=== PATIENT | male | born 1985 | race Caucasian/White ===

== ENCOUNTER 2019-02-25 18:52 | Emergency (ER) | payer OTHER, SELFPAY ==
[2019-02-25 18:55] VITALS: BP 140/98; PULSE 88; RESP 18; TEMP 37.1; O2SAT 100; BMI 25.1
--- NOTE | 2019-02-25 19:03 | EKG12_ITS ---
Test Reason : CP Blood Pressure : / mmHG Vent. Rate : 079 BPM Atrial Rate : 079 BPM P-R Int : 116 ms QRS Dur : 086 ms QT Int : 372 ms P-R-T Axes : 048 071 065 degrees QTc Int : 426 ms Normal sinus rhythm with sinus arrhythmia Normal ECG Confirmed by DOMINIQUE KRISHNA ([id number]), medical editor ALISA MORALES ([id number]) on 02/27/2019 10:47:05 AM Referred By: RIC Confirmed By:DOMINIQUE KRISHNA
[2019-02-25 19:18] LABS: Absolute Lymphocyte Count 1.98 X10^3/uL (0.83-4.51); Absolute Neutrophil Count 4.9 X10^3/uL (2.0-7.7); Basophil# 0.04 X10^3/uL; Basophil% 0.5 % (0-1); Eosinophil# 0.07 X10^3/uL; Eosinophils% 0.9 % (0-5); Hematocrit 43.6 % (40-54); Hemoglobin 14.3 g/dL (13.0-16.5); Lymphocyte # 1.98 X10^3/ul (4.0); Lymphocyte % 26.7 % (19-41); Mean Corp Hgb Conc 32.8 g/dL (32-36); Mean Corpuscular Hgb 29.3 pg (27.0-32.0); Mean Corpuscular Volume 89.3 fL (80-94); Mean Platelet Vol. 9.1 fl (6.2-12.0); Monocyte# 0.46 X10^3/uL; Monocyte% 6.2 % (0-10); NRBC Flagged by Analyzer 0 % (0-5); Neutrophil # 4.85 X10^3/uL (2.7-7.7); Neutrophil % 65.6 % (47-70); Platelet Count 310 K/mm3 (150-450); RBC Distribution Width CV 12.2 % (11.6-14.6); RBC Distribution Width SD 39.9 fl (35.1-43.9); Red Blood Count 4.88 M/mm3 (4.6-6.2); White Blood Count 7.4 K/mm3 (4.4-11.0)
--- NOTE | 2019-02-25 19:18 | RAD_ITS ---
STUDY: X-RAY CHEST REASON FOR EXAM: Male, 33 years old. Chest pain. TECHNIQUE: Frontal chest. COMPARISON: None. FINDINGS: No apparent pneumothorax, pneumonia, pleural effusion, or edema. Cardiac silhouette, meghan and mediastinal contours are within normal limits. No acute osseous abnormality. No evidence of free air under the diaphragm. RAD/Chest 1 View (Portable) IMPRESSION: Negative chest radiograph. Electronically Signed: Isiah Ceballos, at 19:43 EST Tel , Service support ,
[2019-02-25 19:32] LABS: BUN 15 mg/dL (7-18); Creatinine, Serum 0.98 mg/dL (0.70-1.30); EST Glomerular Filtration Rate 92 mL/min (>60); Estimated Creatinine Clearance 112.05 ml/min; Glucose 106 mg/dL (74-106)
[2019-02-25 19:33] LABS: Anion Gap 4 (5-15); BUN/Creat Ratio 15.2 RATIO (10-20); Calcium,Total 9.1 mg/dL (8.5-10.1); Chloride 108 mmol/L (98-107); Est Glom Filt Rate - Afr Amer 111 mL/min (>60); Potassium 3.6 mmol/L (3.5-5.1); Sodium Level 140 mmol/L (136-145)
[2019-02-25 20:24] VITALS: BP 133/88; PULSE 64; RESP 12; O2SAT 100
[2019-02-25] MEDS: Aspirin 81 MG TAB.CHEW 324 MG PO (20:26)
--- NOTE | 2019-02-25 20:39 | EKG12_ITS ---
Test Reason : CP REPEAT Blood Pressure : / mmHG Vent. Rate : 063 BPM Atrial Rate : 063 BPM P-R Int : 120 ms QRS Dur : 084 ms QT Int : 392 ms P-R-T Axes : 042 055 059 degrees QTc Int : 401 ms Normal sinus rhythm Normal ECG Confirmed by DOMINIQUE KRISHNA ([id number]), video news editor ALISA MORALES ([id number]) on 02/27/2019 10:47:22 AM Referred By: MISAEL Confirmed By:DOMINIQUE KRISHNA
[2019-02-25 21:00] VITALS: BP 124/85; PULSE 64; RESP 14; O2SAT 99
--- NOTE | 2019-02-25 22:32 | ED.VISSUMM ---
- ER Visit Summary Date of Service: 02/25/19 Chief Complaint: Chest pain History of Present Illness: The patient is a [address] Salazar. Reports referred cart receiving while making dinner he had the onset of a left-sided chest pain. Is described as a continuous dull pain that is 6 out of 10 at worst and 2 out of 10 currently. Initially it was worsened by external rotation of his left shoulder. However, he reports that no longer seems to make this worse. Is relieved by nothing. He denies any associated nausea, vomiting, shortness of breath, or diaphoresis. No personal or family history of DVT. No recent travel. No ankle swelling or calf pain. He has no risk factors for coronary artery disease. Physical Examination: Vitals: Stable. Afebrile. General: Well-nourished and well-developed. Head: Normocephalic atraumatic. Neck: Supple, no lymphadenopathy. No JVD. Nontender. Cardiovascular: Regular rate and rhythm. No murmurs. Respiratory: No respiratory distress. Clear to auscultation bilaterally. Abdominal: Soft, nontender, nondistended, normal bowel sounds. No guarding, rebound, or peritoneal signs. Back: Nontender. Extremities: Nontender, no edema. Skin: Normal color, no rash. Neurologic: Alert and oriented ?3. Cranial nerves II through XII are intact. Normal strength and sensation. Psych: Normal affect. Test Results: EKG is sinus at [address] changes. Repeat EKG is unchanged. Troponin is negative. Repeat troponin is negative. Chem-7 shows a chloride 108. CBC is normal. Chest x-ray is normal. Emergency Department Course and Treatment: Patient is resting comfortably without complaint. Treatment Plan: Patient's NIKOS score is 0 and he is PERC negative. I feel he is a suitable candidate for further outpatient evaluation. He will be discharged instructions follow-up Dr. Salazar soon as possible. Return to the emergency department for any worsening symptoms. Disposition: To home in improved and stable condition. Impression: 1. Chest pain, atypical. 2. NIKOS score of 0. This note was generated with [employer] software. It may contain incorrect words, spelling, and punctuation that were not noted in review of the chart prior to signing ED Disposition - Plan for ED Patient: Disposition: Home or Assisted Living Instructions: CHEST PAIN, Uncertain Cause Referrals: Cora Salazar MD [Primary Care Provider] - 2 Days
[2019-02-25 22:45] VITALS: BP 130/79; PULSE 62; RESP 16; O2SAT 99
== END 2019-02-25 22:49 | disposition home or self-care (01) ==
PROVIDERS: Emergency Provider Emergency Medicine; Family Provider Family Medicine; PCP Family Medicine
DX: R07.89 Other chest pain (principal)
CPT/HCPCS: 71045; 80048; 84484; 85025; 93005; 99285; A4216

== ENCOUNTER 2019-09-02 11:18 | Emergency (ER) | payer OTHER, SELFPAY ==
[2019-09-02 11:19] VITALS: BP 136/85; PULSE 76; RESP 16; TEMP 36.9; BMI 25.1
[2019-09-02 12:27] VITALS: RESP 16; O2SAT 100
[2019-09-02] MEDS: Diphth,Pertuss(Acell),Tet Vac 0.5 ML Vial IM (12:57)
--- NOTE | 2019-09-02 13:28 | ED.DCSUM_ITS ---
- ER Visit Summary Date of Service: 09/02/19 Chief Complaint: Facial laceration History of Present Illness: The patient is a 34 M who presents with facial laceration that occurred today. Patient states he was cutting wood on a table saw when the wood kicked back and hit him in the face. Patient denies any loss of consciousness. Patient denies any pain. Patient states the bleeding stopped after a few minutes. Patient denies any visual changes. Patient denies any headaches. Patient denies any paresthesias or weakness. Patient is unsure of his last tetanus. Physical Examination: Vital signs are stable. Patient is afebrile. Patient is in no acute distress. Skin is warm and dry. There is a 5 cm superficial abrasion over the right cheek. There is minimal gapping of the wound margins. There is no bleeding. There is a 0.5 cm laceration through the epidermis and dermis of the right upper eyelid. There is moderate gapping of the wound margins. There are no foreign bodies. There is no laceration through the eyelid. Pupils are equal, round, and reactive to light bilaterally. Extraocular muscles are intact. Conjunctiva is clear. Cranial nerves II through XII are intact. There are no focal motor or sensory deficits noted. Oral mucosa is pink and moist. Neck is supple. Trachea is midline. There is no JVD. Heart was regular rate and rhythm. Lungs are clear and equal bilaterally. Emergency Department Course and Treatment: Patient was given a tetanus booster. The right upper eyelid wound was cleaned and irrigated with copious amounts of normal saline. The wound was anesthetized with 1% plain lidocaine locally. The wound was closed with 3 simple interrupted #5-0 nylon sutures under sterile technique. Patient tolerated the procedure well. Patient was instructed to follow-up with his primary care physician in 5 days. Patient was also given referral to ophthalmology for follow-up suture removal. Patient was instructed to keep the wound clean and dry. Patient understood and was agreeable with the plan. All questions were answered. Disposition: Discharge home Impression: 1. Right upper eyelid laceration 2. Facial abrasion This note was generated with [employer] software. It may contain incorrect words, spelling, and punctuation that were not noted in review of the chart prior to signing ED Disposition - Plan for ED Patient: Disposition: Home or Assisted Living Diagnosis: Right eyelid laceration, Facial abrasion Instructions: ED Laceration Facial Sutr Tape Referrals: Cora Salazar MD [Primary Care Provider] - 5 Days for suture removal Miladis Melvin MD [STAFF PHYSICIAN] - 5 Days for suture removal
== END 2019-09-02 13:49 | disposition home or self-care (01) ==
PROVIDERS: Emergency Provider Emergency Medicine; PCP Family Medicine
DX: S01.111A Laceration without foreign body of right eyelid and periocular area, initial encounter (principal); S00.81XA Abrasion of other part of head, initial encounter; W22.8XXA Striking against or struck by other objects, initial encounter; Z23 Encounter for immunization
CPT/HCPCS: 12011; 90471; 90715; 94760; 99284

== ENCOUNTER 2022-04-25 21:07 | Emergency (ER) | payer OTHER, SELFPAY ==
[2022-04-25 21:08] VITALS: BP 119/75; PULSE 83; RESP 15; TEMP 37; O2SAT 98; BMI 26.3
--- NOTE | 2022-04-25 21:23 | ED.VIS.LOWEX ---
HPI History of Present Illness Chief Complaint: Lower Extremity Injury Narrative Narrative: Patient was running and basketball, he heard a pop in his left Achilles and came to the ED. No other injuries. PFSH PFSH Home Medications NK 02/25/19 [History Last Taken Unknown] Allergy/AdvReac Type Severity Reaction Status Date / Time No Known Allergies Allergy Verified 04/25/22 21:12 Social History Smoking Status: Never smoker ROS ROS ED ROS Narrative Past medical history: none Medications: Reviewed Social history: Noncontributory Review of systems: Musculoskeletal: Left ankle pain in the Achilles region Skin: No abrasions or lacerations Neurological: No weakness or paresthesias Hematologic: No easy bleeding or easy bruising EXAM Physical Exam Narrative Exam Narrative: Physical exam General: Patient does not appear in significant distress . Cardiovascular: Normal distal pulses Back: Nontender, Normal Inspection. Extremities: Left ankle shows tenderness over the Achilles region there is an obvious deformity positive Johns sign. Skin: No abrasions, no lacerations Neurological: Normal strength and sensation Const Vital Signs: 04/25/22 21:08 Temperature 98.6 F Temperature Source Temporal Pulse Rate 83 Respiratory Rate 15 Blood Pressure 119/75 Blood Pressure Mean 89 Pulse Ox 98 Oxygen Delivery Method Room Air MDM MDM MDM Narrative Medical decision making narrative: I discussed the patient with podiatry, Dr. Draper who will see him tomorrow. I thought about analgesia however patient has minimal pain and does not require any pain medications. Patient is splinted see procedure note. Otherwise will be discharged in stable condition. Procedure note: Splinting, indication is Achilles tendon rupture. Verbal consent Ortho-Glass was used, a posterior short leg splint was applied ankle was left in extension. Patient tolerated procedure well Radiography Diagnostic Testing: Left ankle x-ray read by me as no bony injuries Discharge Plan Triage Chief Complaint: Lower Extremity Injury ED Provider: Ezekiel Alejo Dx/Rx/DC Orders Clinical Impression: Achilles tendon rupture Instructions: Achilles Tendon Rupture Prescriptions: No Action NK Primary Care Provider: Cora Salazar Referrals: Cora Salazar MD [Primary Care Provider] - Guilherme Draper DPM [Med Staff - Active Staff] - 1 Day (Call in the morning you should have an appointment tomorrow.) Torey Barraza MD [Med Staff - Active Staff] - 3-5 Days Disposition Disposition: Home, Self Care
--- NOTE | 2022-04-25 21:25 | RAD_ITS ---
STUDY: X-RAY - LEFT ANKLE REASON FOR EXAM: Male, 37 years old. FELT POP IN ACHILLES DURING BASKETBALL trauma TECHNIQUE: 3 view(s) of the ankle. COMPARISON: None. FINDINGS: Normal visualized distal tibia and fibula. There is spurring of the medial malleolus and medial talus. Normal tibiotalar articulation and ankle mortise. Normal visualized talus and calcaneus. The visualized subtalar, talonavicular, calcaneocuboid and tarsal articulations are normal. There is no demonstrated fracture. There is posterior soft tissue swelling. RAD/Ankle min 3 Views IMPRESSION: Posterior soft tissue swelling. Electronically Signed: Pino Eaton MD at 22:00 EST ,
== END 2022-04-25 21:59 | disposition home or self-care (01) ==
PROVIDERS: Emergency Provider Emergency Medicine; PCP Family Medicine; Visit Provider Emergency Medicine
DX: S86.012A Strain of left Achilles tendon, initial encounter (principal); Y93.67 Activity, basketball
CPT/HCPCS: 73610; 99283

== ENCOUNTER → 2022-05-02 | Outpatient (CLI) | payer OTHER, SELFPAY ==
[2022-05-02 17:41] LABS: Absolute Lymphocyte Count 1.34 X10^3/uL (0.83-4.51); Absolute Neutrophil Count 4.4 X10^3/uL (2.0-7.7); Basophil# 0.02 X10^3/uL; Basophil% 0.3 % (0-1); Eosinophil# 0.04 X10^3/uL; Eosinophils% 0.6 % (0-5); Hemoglobin 14.3 g/dL (13.0-16.5); Lymphocyte # 1.34 X10^3/ul (0.83-4.51); Lymphocyte % 21.6 % (19-41); Mean Corp Hgb Conc 31.8 g/dL (32-36); Mean Corpuscular Hgb 29.1 pg (27.0-32.0); Mean Corpuscular Volume 91.5 fL (80-94); Mean Platelet Vol. 9.1 fl (6.2-12.0); Monocyte# 0.38 X10^3/uL; Monocyte% 6.1 % (0-10); NRBC Flagged by Analyzer 0 % (0-5); Neutrophil # 4.41 X10^3/uL (2.7-7.7); Neutrophil % 71.4 % (47-70); Platelet Count 328 K/mm3 (150-450); RBC Distribution Width CV 12.4 % (11.6-14.6); RBC Distribution Width SD 41.7 fl (35.1-43.9); Red Blood Count 4.92 M/mm3 (4.6-6.2); White Blood Count 6.2 K/mm3 (4.4-11.0)
[2022-05-02 18:54] LABS: ALB/GLOB Ratio 1.1 RATIO (0.9-2.4); AST(SGOT) 15 U/L (15-37); Alanine Aminotransfer ALT/SGPT 23 U/L (16-61); Alkaline Phosphatase 84 U/L (45-117); Anion Gap 5 (5-15); BUN 18 mg/dL (7-18); BUN/Creat Ratio 17.5 RATIO (10-20); Calcium,Total 9.2 mg/dL (8.5-10.1); Chloride 105 mmol/L (98-107); Creatinine, Serum 1.03 mg/dL (0.70-1.30); EST Glomerular Filtration Rate 85 mL/min (>60); Est Glom Filt Rate - Afr Amer 103 mL/min (>60); Globulin 3.8 g/dL (2.2-4.2); Glucose 96 mg/dL (74-106); Potassium 4.2 mmol/L (3.5-5.1); Protein, Total 7.8 g/dL (6.4-8.2); Sodium Level 138 mmol/L (136-145)
== END | disposition home or self-care (01) ==
LOC: MFPLAB 16:43
PROVIDERS: PCP Family Medicine; Visit Provider Family Medicine
DX: Z01.818 Encounter for other preprocedural examination (principal)
CPT/HCPCS: 36415; 80053; 85025

== ENCOUNTER 2022-05-08 11:39 | Day surgery (SDC) | payer OTHER, SELFPAY ==
[2022-05-08 12:04] VITALS: BP 148/78; PULSE 92; RESP 16; TEMP 36.8; O2SAT 100; BMI 26.4
[2022-05-08] MEDS: Lactated Ringers 1,000 ML 15 ML IV (12:29)
[2022-05-08] MEDS: Cefazolin 2 GM in 0.9% Normal Saline 100 ML IV (13:40)
--- NOTE | 2022-05-08 15:08 | DCINST_ITS ---
Discharge Instructions Diet Discharge Diet: Light diet - advance as tolerated Activity Discharge Activity: May Not Drive Weight Bearing Status: No weight bearing (No weightbearing left foot.) Keep extremity elevated above heart level: Left Leg (Keep left foot elevated for at least 50 minutes of every hour.) Dressing / Incision Call your doctor if your incision/area has: Continuous Slow Oozing, Sudden Increased Bleeding and Foul Smelling Discharge Call your doctor if you observe: Fever of 101 or Higher, Shortness of breath, Chest pain, Increased palpitations (irregular heartbeat), Calf discomfort and Uncontrolled pain Change Dressing in: do not change dressing Remove Dressing in: do not remove dressing Cleanse incision/area with: Keep Dressing Clean & Dry Follow Up Care Please Follow Up With: Guilherme Draper DPM When: 1 week in office, sooner if needed. Call Dr. Draper if needed: [phone] - cell Additional instructions: On Sunday05/09/2022: Start 325mg Aspirin tablet by mouth in morning once a day to help prevent a blood clot. Also if you do not need prescription pain medication take: Over the counter Tylenol (acetaminophen) 500mg tablet - 1-2 tablets (which is 500-1,000mg) by mouth every 8 hours as needed for pain. Do not take prescription pain medication at same time as over the counter Tylenol - wait 6 hours in between prescription pain medication and over the counter Tylenol medication. Test Results: Test results from this visit will be discussed in further detail at your follow- up appointment, if applicable. Discharge Plan Admission Attending Provider: Guilherme Draper Primary Care Provider: Cora Salazar Discharge Orders/Prescriptions Prescriptions: New hydrocodone-acetaminophen 5-325 mg tablet 1 - 2 tab PO Q6H PRN (Reason: pain) 4 Days Qty: 20 0RF Referrals / Follow Up: Cora Salazar MD [Primary Care Provider] - Disposition Disposition (needs filled in before D/C Order can be placed): Home, Self Care
--- NOTE | 2022-05-08 15:12 | OP.PCM_ITS ---
Report of Operation Date of Procedure: 05/08/22 Pre-Operative Diagnosis: Left achilles tendon rupture Post-Operative Diagnosis: Same Surgery/Procedure Performed:: Open repair of achilles tendon rupture, left Surgeon: Guilherme Draper Type of Anesthesia: General and Local Specimen's removed: None Estimated Blood Loss (mL): 1mL Description of Procedure: Indications: This is a 37 year-old gentleman who has sustained a full thickness left Achilles tendon rupture playing basketball. He has pain, swelling and bruising as well as significant weakness to the achilles tendon. There is a positive caceres test to the left achilles tendon. We discussed the options - nonsurgical vs surgical. This was discussed with him in detail. He would like to proceed with surgical intervention - we discussed open repair of achilles tendon. He did get a second opinion prior to surgery by James Plummer. The procedure was reviewed with him, as well as the goals, estimated recovery and the benefits vs risks with him. He was advised the risks include but are not limited to pain, scar tissue, weakness, recurrence, need for further surgery, deformity, nonhealing, infection, blood clot, numbness, nerve injury and damage, bleeding, failure, loss of limb, loss of life. Can take 12-14 months for maximal healing - possibly longer. All the consent forms were reviewed with him and he freely signed them. No guarantees were given nor implied. No warrantees were given. Operative Procedure: The patient was brought back into the operating room.? The patient received general anesthesia per the anesthesiologist.?He was carefully placed on the operating room table in the prone position secured with a safety belt in place and body well padded. A well-padded pneumatic tourniquet was applied around the left thigh.? A time-out was performed and the patient was properly identified and surgical plan was confirmed.? The patient did receive prophylactic antibiotics for this procedure, which was Ancef 2 grams intravenous.? The left lower extremity was scrubbed, prepped and draped in the usual aseptic fashion. Attention was directed to the left foot and ankle. Again there was noted to be a positive Caceres test, with dell to the achilles tendon with swelling and bruising consistent with full thickness Achilles tendon rupture. The left foot/ankle/leg were elevated for 3 minutes and the right thigh pneumatic tourniquet was inflated to 300mmHg. A total of 30mL of 0.25% Bupivacaine plain was given as a nerve block around the achilles tendon. A linea longitudinal skin incision was made overlying the achilles tendon. Careful dissection as completed down to the paraton and it was incised and reflected exposing the achilles tendon. There was complete transverse rupture at the watershed area of the achilles tendon. The site was irrigated with normal saline solution. The tendon ends were brought together and were repair together using a Oscar suturing kai hinque using 2 Fiberwire and 0 Prolene. The ends were also reinforced using 2-0 Vicryl. The tendon was repaired to proper tension. There was now a negative caceres test and foot was in normal amount of plantarflexion with patient in prone position on the operating room table. There was normal range of motion to the foot and ankle with a very good repair in place. The site was flushed with copious amounts of normal saline solution. The paraton was repair using 3-0 Vicryl. The skin was repaired using 4-0 Monocryl. Incision edges were painted with Cavalon and steristrips applied. A dressing of betadine adaptic, 4x4 gauze, kerlix, and beth were applied. A well padded below knee posterior splint was applied secured with beth bandages and heel and incision offloaded. The patient tolerated the procedure and anesthesia well with no complications. Post op orders placed. Post op instructions reviewed and dispensed verbal and written. No weightbearing left foot, keep left foot elevated at least 50 min of every hour, keep dressing and splint clean, dry and intact. Rx Vicodin for post op pain management. Start 325mg Aspirin PO once daily tomorrow. Follow up with me in 1 week, sooner if needed. Grafts/Implants Used: 2 fiberwire and 0 prolene was used to repair left achilles tendon Complications None
[2022-05-08 15:15] VITALS: BP 131/91; BP 148/78; PULSE 74; RESP 18; O2SAT 100
[2022-05-08 15:30] VITALS: BP 142/94; BP 148/78; PULSE 71; RESP 18; TEMP 36.1; O2SAT 94
[2022-05-08 15:45] VITALS: BP 140/98; BP 148/78; PULSE 71; RESP 18; O2SAT 100
[2022-05-08 15:56] VITALS: BP 143/92; BP 148/78; PULSE 71; RESP 18; TEMP 36.2; O2SAT 99
[2022-05-08 16:27] VITALS: BP 148/78
== END 2022-05-08 16:47 | disposition home or self-care (01) ==
LOC: SDC 11:40 → AC 11:41
PROVIDERS: PCP Family Medicine; Referring Provider Podiatrist; Visit Provider Podiatrist
PROC: (CPT 27650; principal; 2022-05-08 13:15)
DX: S86.012A Strain of left Achilles tendon, initial encounter (principal); X58.XXXA Exposure to other specified factors, initial encounter; Y93.67 Activity, basketball
CPT/HCPCS: 27650; 01472; J7120; J2405

== ENCOUNTER → 2022-06-28 | Outpatient (CLI) | payer OTHER, SELFPAY ==
--- NOTE | 2022-06-28 07:45 | MRI_ITS ---
STUDY: MRI LEFT ANKLE WITHOUT CONTRAST REASON FOR EXAM: Male, 37 years old. Recent Achilles tendon repair surgery with continued medial pain. TECHNIQUE: Standardized fat and water weighted pulse sequences were obtained in all 3 orthogonal planes. COMPARISON: Left ankle images dated April 25, 2022. FINDINGS: Diffuse superficial subcutaneous soft tissue edema (coronal series 11 images to-10). Minimal posterior tibialis tenosynovitis. Flexor digitorum longus and flexor hallucis longus tenosynovitis most marked on the plantar surface of the foot (axial series 3 images 6-15). Normal peroneus longus and brevis tendons. Normal tibialis anterior tendon. Normal extensor hallucis longus tendon. Normal extensor digitorum longus tendons. Thickening of the distal Achilles tendon with artifact compatible with distal Achilles tendon repair (sagittal series 8 and 9 images 11-16). Normal plantar fascia. Normal plantar calcaneal tubercles. Normal intrinsic muscles of the rearfoot. Normal distal tibiofibular syndesmotic ligamentous complex. Normal lateral ligamentous complex. Normal subtalar ligaments and sinus tarsi. Normal deltoid ligamentous complexes. Normal plantar calcaneonavicular (spring) ligament. Normal tibiotalar articulation. Normal talar dome. Normal subtalar articulations. Normal talonavicular articulation. Normal calcaneocuboid articulation. Normal navicular-cuneiform articulations. MRI/Lower Ext Joint Only (Routine) IMPRESSION: Minimal posterior tibialis tenosynovitis. Flexor digitorum longus and flexor hallucis longus tenosynovitis. Postsurgical changes with thickening of the distal Achilles tendon with artifact. Diffuse superficial subcutaneous soft tissue edema. Electronically Signed: Leo Sneed, at 14:51 EDT ,
== END | disposition home or self-care (01) ==
PROVIDERS: PCP Family Medicine; Referring Provider Podiatrist; Visit Provider Podiatrist
DX: S86.112A Strain of other muscle(s) and tendon(s) of posterior muscle group at lower leg level, left leg, initial encounter (principal)
CPT/HCPCS: 73721

== ENCOUNTER 2022-08-21 15:30 | Outpatient (RCR) | payer OTHER, SELFPAY ==
--- NOTE | 2022-07-25 17:10 | HP.PTEVAL ---
Patient's Visit Information GREGORY SWAN is a 37 year old M referred to Physical Therapy by JEFF BurnsM with a diagnosis of L achilles repair 05/08/22. Date of Evaluation: 07/25/22 Physical Therapist: Gary Luu, PT, ATC - Visit Plan Frequency: 2-3x /Week Duration: 4-6 Weeks Plan: Wean out of boot as tolerated. L ankle PROM and mobs, stretching and strengthening, balance and proprio, gait training, bike, and HEP - Subjective DOS: 05/08/22. Pt reports he was playing basketball at that time and tore his Achilles tendon. Pt notes he has sprained his ankle a lot in the past and though that was all that happened. Pt notes he had to have the surgery to repair his tendon and now he feels much better. Pt reports his pain is minimal, but his L LE feels very weak. Pt reports he has not been performing a HEP as of this time. Pt notes he has attempted to ambulate without his cam boot, but he feels very unconfident and weak. Pt reports he is not on any restrictions other than to wean himself out of the boot. Pt reports numbness in L LE only surrounding the incision. 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 .5/10 pain at this time, 4/10 pain from prolonged standing. Pt denies sleep difficulty at this time secondary to pain. - Pain L achilles Pain Intensity (Out of 10): 1 Pain Intensity Range: 4 - Objective Neuro: B LE sensation is WNL to light touch. Girth: L foot 60 cm, R foot 57 cm. MMT: R ankle DF= 37, PF= 52#F; L ankle DF= 37, PF= 19 #F. ROM: R ankle DF= 5, PF= 60 degrees; L ankle DF= -5, PF= 45 degrees - Balance/Special Test Scores Lower Extremity Functional Score: 46 - Goals Goal 1:: Increase L ankle DF and PF strength x 15 #F to aid with stair negotiation Goal Time Frame: 4-6 Weeks Goal 2:: Increase L ankle DF ROM x 15 degrees to aid with decreasing pain Goal Time Frame: 4-6 Weeks Goal 3:: Decrease L ankle pain x 50% to aid with prolonged ambulation Goal Time Frame: 4-6 Weeks Goal 4:: I with hep Goal Time Frame: 4-6 Weeks - Rehabilitation Potential Physical Therapy Diagnosis: Pt has L ankle pain, weakness, and limited ROM secondary to L achilles repair Rehabilitation Potential: Good - Anticipated Interventions Patient/Client Instruction: Educate patient on: Condition, Plan of Care For the Purpose of:: To improve self management Therapeutic Exercise to Include: Strength training, Endurance training, Balance training, Flexibilty training, Gait and locomotor training, Active ROM, Dynamic Lumbar Stabilization For the Purpose of:: To decrease pain, To increase ROM, To improve muscle performance and motor function Cryotherapy (ice pack, ice massage): Yes For the Purpose of:: To decrease pain Thank you for the opportunity to evaluate your patient. For Medicare and Medicare HMO plans, please review the plan of care and approve it. It will need to be FAXED BACK to us at [phone] for Medicare purposes. For Medicare only, by signing this I certify the plan of care. Please let me know if there are questions or concerns regarding this plan of care. Physician Signature: Date:
--- NOTE | 2022-11-15 13:11 | HP.PT.NRP ---
Patient Information Patient Information: GREGORY SWAN was seen in my office for initial evaluation on 07/25/22. The following Plan of Care was established for this patient: POC Established Initial Frequency: 2-3x /Week Initial Duration: 4-6 Weeks Anticipated Interventions Patient/Client Instruction: Educate patient on: Condition and Plan of Care For the Purpose of:: To improve self management Therapeutic Exercise to Include: Strength training, Endurance training, Balance training, Flexibilty training, Gait and locomotor training, Active ROM and Dynamic Lumbar Stabilization For the Purpose of:: To decrease pain, To increase ROM and To improve muscle performance and motor function Cryotherapy (ice pack, ice massage): Yes For the Purpose of:: To decrease pain Last Seen Last Seen: This patient was last seen in our office . Pertinent comments regarding their Physical therapy will appear below: Pt was treated for 4PT visits for L heel pain through the date of 08/21/22. Pt has not returned through todays date and is discontinued at this time. At this point I will be discontinuing this patient from physical therapy. I would be happy to see this patient again in the future if found appropriate by the physician. Thank you! Gary Luu, PT, ATC Balance/Gait/Functional tests Balance/Special Test Scores Lower Extremity Functional Score: 46
== END 2022-08-21 19:00 | disposition home or self-care (01) ==
LOC: PT 15:30
PROVIDERS: PCP Family Medicine; Referring Provider Podiatrist; Visit Provider Podiatrist
DX: Z98.890 Other specified postprocedural states (principal)
CPT/HCPCS: 97110; 97140; 97161

== ENCOUNTER 2024-12-23 13:57 | Day surgery (SDC) | payer OTHER, SELFPAY ==
[2024-12-23 14:20] VITALS: BP 122/84; PULSE 79; RESP 16; TEMP 36.5; O2SAT 100; BMI 24.0
[2024-12-23] MEDS: Lactated Ringers 1,000 ML 15 ML IV (14:22)
--- NOTE | 2024-12-23 14:36 | PCM.PRE.AN2 ---
ASA Classification* ASA Classification ASA Classification: 1 Assessment & Plan Anesthesia* Anesthesia Assessment Anesthesia Assessment: Discussed sedation and/or anesthesia options, risks, benefits, and alternatives with patient/parents/legal guardian/POA. Questions invited. The patient/parents/legal guardian/POA seems to understand and agrees to proceed with anesthesia plan. Reviewed the physical assessment, medical history, allergy history and patient home medications list prior to surgery/procedure/anesthetic and documented any changes. Performed airway and anesthesia risk assessments. Anesthesia Type Anesthesia Type: MAC History Source History Obtained from:: Patient and Chart Anesthesia Focused Assessment* Temperature: 97.7 F Pulse Rate: 79 Blood Pressure: 122/84 Respiratory Rate: 16 Pulse Ox: 100 Oxygen Delivery Method: Room Air Airway Assessment Mouth opens: >3 cm Mallampati Score: I Teeth Condition: Intact Neck Range of motion (ROM): Full ROM Labs Anesthesia Preop lab: CBC WBC, (4.4-11.0) 6.2 K/mm3 05/02/22, 16:43 RBC, (4.6-6.2) 4.92 M/mm3 05/02/22, 16:43 Hgb, (13.0-16.5) 14.3 g/dL 05/02/22, 16:43 Hct, (40-54) 45.0 % 05/02/22, 16:43 Plt Count, (150-450) 328 K/mm3 05/02/22, 16:43 CHEMISTRY Potassium, (3.5-5.1) 4.2 mmol/L 05/02/22, 16:43 Sodium, (136-145) 138 mmol/L 05/02/22, 16:43 BUN, (7-18) 18 mg/dL 05/02/22, 16:43 Creatinine, (0.70-1.30) 1.03 mg/dL 05/02/22, 16:43 Glucose, (74-106) 96 mg/dL 05/02/22, 16:43 COAG Pre-Assessment Diagnosis/Proposed Procedure Planned Operative Procedure(s): COLONOSCOPY Anesthesia History 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 When Was Last Pacemaker Check QUESTION #4 FULL TEXT: You/Your Family Experience fever (hyperthermia) with Anesthesia Last Oral Intake Last Oral intake: Last Oral Intake NPO since 11:00 12/23/24 14:20 Meds taken in AM with sips of No 12/23/24 14:20 water? 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 Female Yes 12/18/24 14:46 HX of Motion Sickness No 12/18/24 14:46 HX of N/V After Surgery No 12/18/24 14:46 Non-Smoker Yes 12/18/24 14:46 Duration of Surgery greater No 12/18/24 14:46 than 60 minutes Number of Risk Factors 2 12/18/24 14:46 PONV Score Moderate Risk 12/18/24 14:46 Height & Weight Height & Weight: Anesthesia: Height & Weight Height 5 ft 11 in 12/23/24 14:20 Weight: 78 kg 12/23/24 14:20 Body Mass Index (BMI) 24.0 12/23/24 14:20 Respiratory Assessment Respiratory Assessment - electronic security technician: Respiratory Tract Infection Hx - electronic security technician Hx Respiratory Tract Infection No 12/18/24 14:46 STOP Sleep Apnea STOP Sleep Apnea - electronic security technician: STOP Sleep Apnea - electronic security technician Hx Hypertension No 12/18/24 14:46 Hx Sleep Apnea No 12/18/24 14:46 CPAP BIPAP Do you snore loudly (louder No 12/18/24 14:46 than talking or can be heard Do you often feel tired/ No 12/18/24 14:46 fatigued/ sleepy during daytime? Has anyone observed you stop No 12/18/24 14:46 breathing during sleep? STOP Results Negative 12/18/24 14:46 QUESTION #5 FULL TEXT : Do you snore loudly (louder than talking or can be heard through closed doors)? 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 Specify any problems Hx of Preganancy in last 3 N/A 12/18/24 14:46 Months Nurse Filling Out Transfusion [email or web address] 12/18/24 14:46 & Questions: Date: 12/18/24 12/18/24 14:46 Time: 14:46 12/18/24 14:46 Patient unable to answer at this time (ie. confused, unrespo /Reproduction History /Reproductive History - electronic security technician: /Reproductive Hx- electronic security technician Hx Now No 12/18/24 14:46 Gestational Age (in weeks): EDC: Hx Hx Para Hx Section SAB No 12/18/24 14:46 Active Medications Active Medications: Current Medications Generic Name Dose Route Start Last Admin Trade Name Freq PRN Reason Stop Dose Admin Lactated Ringer's 1,000 mls @ 15 mls/hr 12/23/24 14:15 12/23/24 14:22 IV 15 mls/hr .Q48H JIMI Administration PFSH Medical History Back pain Non-smoker Home Medications ?Medication ?Instructions ?Recorded ?Last Taken ?Type NK 09/17/24 Unknown History Allergy/AdvReac Type Severity Reaction Status Date / Time No Known Allergies Allergy Verified 12/23/24 14:16 Surgical History History of Achilles tendon repair Hx of colonoscopy Social History Smoking Status: Never smoker Review of Systems (Anesthesia) ROS Narrative System reviewed and no additional complaints, except as documented.
[2024-12-23 14:46] VITALS: BP 122/84; PULSE 79; RESP 16; TEMP 36.5; O2SAT 100
--- NOTE | 2024-12-23 15:00 | COLBX_PTH ---
PATIENT: GREGORY SWAN LOC: EN U#:[id number] AGE/SX: 39/M ROOM: RE12/23/[address]: Dr. Jai Kay DO : 1985 BED: DIS: 12/23/2024 SPEC #: [id number] RECD: 12/24/24 07:11 STATUS: KALI DARREN #: [id number] DAVINA: 12/23/24 15:[address]: Jai Kay DEPT: SURGICAL PATHOLOGY RECD BY: Terrence Choi ENTERED: 12/24/24 11:03 SP TYPE: COLON BX SONG DR: Carly Primary Care Phys Tissues: A - COLON BIOPSY Procedures: Surgery Specimen Level IV HEADER OPERATION: Colonoscopy with biopsy PRE-OP DIAGNOSIS: Family history of colon cancer, flatulence, bloating TISSUE SUBMITTED: A- Random colon biopsy MICROSCOPIC DIAGNOSIS A. Colon, random, biopsy: - No specific pathologic change. - The histologic features of microscopic colitis are not demonstrated. MICROSCOPIC DESCRIPTION Slides are reviewed. GROSS DESCRIPTION A. Received in fixative is one container labeled with the patient's name and designated Random colon biopsy. The specimen consists of multiple irregular fragments of mcgill tissue that in aggregate measure 1.3 x 0.9 x 0.1 cm. The specimen is totally submitted in one cassette. FL 12/24/2024 CPT:11994
--- NOTE | 2024-12-23 15:12 | PCM.HP.STD ---
HPI - General General Date of Admission: 12/23/24 Date of Service: 12/23/24 Chief Complaint: Bloating and diarrhea with family history of colon cancer HPI Narrative MALCOLM SWAN, is a 39 M who presents [Chief Complaint: bloating Pt here today for issues with gas and bloating worsening over the past few months. Pt originally noticed these symptoms have having a GI illness a year ago. He feels lower abd discomfort and bloating and always feeling the need to pass gas. He has not noticed any trigger foods. Yesterday he has a yogurt and banana and still had issues. He has regular bm at least once a day. He takes fiber daily for about 10 years now which keeps him regular. He had a colonoscopy about [address] Otto due to concerns of rectal prolapse however nothing was found. Pt has to apply pressure to his anus after each bm to push mucosa back in. Dr. Otto determined this was likely hemorrhoids and gave him a cream however this did not help. He has a hx of colon cancer in both his grandparents diagnosed at age 60. PFSH Medical History Back pain Non-smoker Home Medications ?Medication ?Instructions ?Recorded ?Last Taken ?Type NK 09/17/24 Unknown History Allergy/AdvReac Type Severity Reaction Status Date / Time No Known Allergies Allergy Verified 12/23/24 14:16 Surgical History History of Achilles tendon repair Hx of colonoscopy Social History Smoking Status: Never smoker ROS Constitutional Constitutional: Denies fatigue, fever(s), poor appetite, weight gain or weight loss Gastrointestinal Gastrointestinal: Denies belching, bloating, change in bowel habits, change in stool character, chewing difficulty, coffee ground emesis, constipation, cramping, diarrhea, dyspepsia, dysphagia, early satiety, excessive flatus, fecal incontinence, heartburn, hematemesis, hematochezia, hemorrhoids, loose stools, melena, nausea, odynophagia, rectal bleeding, tenesmus, vomiting or weight changes Vital Signs Vital Signs Vital Signs: 12/23/24 14:20 12/23/24 14:20 12/23/24 14:46 Temperature 97.7 F L 97.7 F L Temperature Source Temporal Pulse Rate 79 79 Respiratory Rate 16 16 Respiratory Pattern Normal Blood Pressure 122/84 H 122/84 H Blood Pressure Mean 96 Blood Pressure Source Monitor Blood Pressure Position Semi-Fowlers Blood Pressure Location Left Arm Pulse Ox 100 100 Oxygen Delivery Method Room Air Room Air Weight Weight: 171 lb 15.369 oz Body Mass Index (BMI) 24.0 Physical Exam Const alert, oriented x3, no apparent distress and healthy appearing General Appearance: cooperative GI normal to inspection, nondistended, normoactive bowel sounds, soft to palpation, non-tender and non-distended Percussion: normal to percussion Rectal Exam: deferred Assessment & Plan Assessment/Plan (1) Family hx of colon cancer: (2) Flatulence: (3) Bloating: PLAN: Assessment and Plan Assessment and Plan (1) Bloating: Status: Acute Plan: Malcolm is a 39 yo male pt here today for establishment with I for excessive flatulence and bloating x1 year. Pt started with these symptoms after a viral GI illness about a year but has worsened over the past year. He has not noticed any trigger foods. He will attempt to avoid dairy for at least 2 weeks to see if this provides any relief. He will also start a probiotic. Pt will undergo repeat colonoscopy to assess his colon and rectum. He feels he may have a prolapse or hemorrhoids and must reduce it after each BM. Will consider colorectal surgery referral if colonoscopy reveals a rectal prolapse. -Colonoscopy -Diary avoidance for at least 2 weeks -Start probiotic -f/u after procedure (2) Flatulence: Status: Acute (3) Family hx of colon cancer: Status: Acute Medications: Discontinued hydrocodone-acetaminophen 5-325 mg Discontinued Reason: Pt no longer taking 1 - 2 tabs PO Q6H 4 days PRN 20 tabs 0RF pain M79.672 - Pain in left foot Coding Level of Care Code ]
[2024-12-23] MEDS: Lactated Ringers 1,000 ML 1000 ML IV (15:57)
--- NOTE | 2024-12-23 16:19 | OP.COLON_ITS ---
Patient Name: Malcolm Dailey
[2024-12-23 16:20] VITALS: BP 114/79; BP 122/84; PULSE 66; RESP 16; TEMP 36.2; O2SAT 100
--- NOTE | 2024-12-23 16:23 | POSTOP.ANE_ITS ---
Anesthesia: Postop Eval I
--- NOTE | 2024-12-23 16:23 | PCM.POST.ANE ---
Anesthesia: Postop Eval I Current Vital Signs Temperature: 97.1 F Pulse Rate: 68 Blood Pressure: 114/79 Respiratory Rate: 20 Pulse Ox: 99 Oxygen Delivery Method: Room Air Assessment Airway patent: Yes Spontaneous unlabored respirations: Yes Mental status: Awake and Calm nausea: No Vomiting: No Anesthesia Complication: No Fluid Hydration Crystalloid volume administer (ml): 400 Total IV fluid infused: 400 Progress Note Anesthesia document: Postop Eval 1 completed: Yes
[2024-12-23 16:24] VITALS: BP 114/79; PULSE 68; RESP 20; TEMP 36.2; O2SAT 99
[2024-12-23 16:25] VITALS: BP 116/75; BP 122/84; PULSE 67; RESP 16; O2SAT 100
[2024-12-23 16:30] VITALS: BP 122/84; BP 134/82; PULSE 56; RESP 16; TEMP 36.4; O2SAT 100
--- NOTE | 2024-12-23 17:24 | POSTOPAN2_ITS ---
Anesthesia Postop Eval I Sum
--- NOTE | 2024-12-23 17:24 | PCM.POSTANE2 ---
Anesthesia Postop Eval I Sum Postop Eval Completion status Anesthesia document: Postop Eval 1 completed: Yes Anesthesia Postop Eval I Summary Anesthesia Postop Eval I Summary: Anesthesia Postop Eval I: Assessment Summary Airway patent Yes 12/23/24 16:24 [email or web address] Spontaneous unlabored Yes 12/23/24 16:24 [email or web address] respirations Mental status Awake,Calm 12/23/24 16:24 [email or web address] nausea No 12/23/24 16:24 [email or web address] Vomiting No 12/23/24 16:24 [email or web address] Anesthesia Postop Eval I: Fluid Summary Crystalloid volume administer 400 12/23/24 16:24 [email or web address] (ml) Colloids volume administered ( ml) Blood Product volume administered (ml) Total IV fluid infused 400 12/23/24 16:24 [email or web address] Anesthesia Postop Eval I: Summary Notes Anesthesia Complication No 12/23/24 16:24 [email or web address] Anesthesia Complication Comment: Post-operative progress note Anesthesia: Postop Eval II Evaluation Mental status: Awake and Calm Pain Level: 0 nausea: No Vomiting: No Complications Anesthesia Complication: No
== END 2024-12-23 16:56 | disposition home or self-care (01) ==
LOC: EN 13:57 → AC 13:59
PROVIDERS: Visit Provider Internal Medicine Gastroenterology
PROC: 0DJD8ZZ Inspection of Lower Intestinal Tract, Via Natural or Artificial Opening Endoscopic (ICD-10-PCS; CPT 45378; principal; 2024-12-23 14:55)
DX: Z12.11 Encounter for screening for malignant neoplasm of colon (principal); K64.2 Third degree hemorrhoids; Z80.0 Family history of malignant neoplasm of digestive organs
CPT/HCPCS: 45380; 88305